=== PATIENT | female | born 1980 | race American Indian/Alaskan Native ===

== ENCOUNTER 2019-12-17 08:28 | Outpatient (CLI) | payer OTHER ==
--- NOTE | 2019-12-17 09:28 | Mammography Report ---
DIGITAL BILATERAL DIAGNOSTIC MAMMOGRAM WITH CAD, WITHOUT TOMOSYNTHESIS 12/17/2019 INDICATION: LT BREAST LUMP, UPPER OUTER QUAD TECHNIQUE: Digital bilateral mammographic imaging was performed. Spot compression and magnification views were obtained. This examination was interpreted with the benefit of Computer-aided Detection analysis. COMPARISON: None, baseline Breast Density: The breasts are extremely dense, which lowers the sensitivity of mammography. FINDINGS: At the marked site of palpable abnormality a very superficial 10 mm rounded density is seen adjacent to the cutaneous layer. I suspect this is a sebaceous cyst. No other abnormalities are seen in either breast. IMPRESSION: Probable sebaceous cyst at the site of palpable concern on the left. Follow up recommendation: Left breast ultrasound is scheduled for this morning BI-RADS Category 0: Incomplete. Needs additional imaging evaluation and/or prior mammograms for regine rison. A "normal" or negative report should not discourage follow up or biopsy of a clinically significant f inding. A written summary of these findings will be mailed to the patient. The patient will be entered into a mammography reporting system which will generate a reminder letter for the patient's next appointmen t at the appropriate interval. According to the [employer], yearly mammograms are recommended starting at age 40 and continuing as long as a woman is in good health. Breast MRI is recommended for women with an jose roximately 20-25% or greater lifetime risk of breast cancer, including women with a strong family his tory of breast or ovarian cancer and women who have been treated for Hodgkin's disease. Signer Name: Hermilo Lugo MD Signed: 12/17/2019 9:23 AM Workstation Name: [id number]
== END 2019-12-17 08:29 | disposition home or self-care (01) ==
LOC: SPVWC 08:28
PROVIDERS: ATTEND Obstetrics & Gynecology
DX: N63.21 Unspecified lump in the left breast, upper outer quadrant (principal)
CPT/HCPCS: 77066

== ENCOUNTER 2019-12-17 11:57 | Outpatient (CLI) | payer OTHER ==
--- NOTE | 2019-12-17 13:38 | Ultrasound Report ---
EXAMINATION: Left Limited Breast Ultrasound, 12/17/2019 INDICATION: The patient reports a lump in the left breast. COMPARISON: Diagnostic mammogram, 12/17/2019 FINDINGS: Targeted ultrasound evaluation was performed of the area of interest. Sonographic evaluati on of the left breast on position 1 cm from the nipple in the patient's area of palpable concern demo nstrates an oval cyst or cystlike structure within the skin, measuring 7 mm. This corresponds to the patient's area of clinical concern and to the mammographic findings. There is no evidence of suspicio us solid mass or shadowing. IMPRESSION: Follow up recommendation: Clinical exam BI-RADS Category 2: Benign. The palpable area of concern in the left breast appears to correspond to a skin lesion as described above. This may represent a sebaceous cyst but clinical correlation is re commended. A normal or "negative" report should not preclude biopsy or follow-up of a clinically suspicious find ing. Signer Name: Navya Covarrubias MD Signed: 12/17/2019 1:33 PM Workstation Name: [id number]
== END 2019-12-17 11:58 | disposition home or self-care (01) ==
LOC: US 11:57
PROVIDERS: ATTEND Obstetrics & Gynecology
DX: N63.21 Unspecified lump in the left breast, upper outer quadrant (principal)